=== PATIENT | male | born 1955 | race Two or more races ===

== ENCOUNTER 2019-03-18 14:33 | Inpatient (IN) | payer MEDICAID, OTHER ==
[~2019-03-18] VITALS: Ht 160 cm; Wt 70.5 kg
[2019-03-18] MEDS ORDERED: ACETAMINOPHEN 325 MG TAB PO ONE (15:00)
[2019-03-18 15:26] LABS: Basophils # (auto) 0.1 uL; Eosinophils # (auto) 0 uL; Mean Corpuscular Hemoglobin 18.3 pg (28.0-32.0); Mean Corpuscular Hgb Conc. 31.1 g/dL (32.0-36.0); Mean Corpuscular Volume 58.8 fL (80.0-100.0); Nucleated Red Blood Cells % 0.1 %; Red Cell Distribution Width 17.5 % (11.8-14.3)
[2019-03-18 15:28] LABS: Basophils % (auto) 0.6 % (0.0-2.0); Hemoglobin 11.5 g/dL (13.5-17.5); Lymphocytes # (auto) 0.6 uL; Lymphocytes % (auto) 4.8 % (10.0-50.0); Monocytes # (auto) 0.9 uL; Monocytes % (auto) 7.6 % (0.0-12.0); Neutrophils # (auto) 10.4 uL; Platelet Count (auto) 221 10^3/uL (140-450); Red Blood Cells 6.29 10^6/uL (4.5-5.90)
[2019-03-18] MEDS ORDERED: SODIUM CHLORIDE 0.9% 500 ML IV ONE (15:36)
[2019-03-18 15:38] LABS: Albumin 3.4 g/dL (3.4-5.0); BUN/Creatinine Ratio 13.8; Calcium 8.3 mg/dL (8.5-10.1); Potassium 4.3 mmol/L (3.5-5.1)
[2019-03-18 15:41] LABS: Bilirubin, Total 0.6 mg/dL (0.2-1.0); Total Protein 7.7 g/dL (6.4-8.2)
[2019-03-18 15:58] LABS: Urine Bacteria MANY /hpf (None Seen); Urine Blood 2+ /uL (Negative); Urine Mucus FEW (None Seen); Urine Specific Gravity 1.015 (1.001-1.035); Urine WBC 1894 /hpf (0 - 3); Urine WBC Clumps PRESENT /hpf (None Seen)
[2019-03-18] MEDS ORDERED: ONDANSETRON HCL 4 MG/2 ML VIAL IV ONE (17:15)
[2019-03-18] MEDS ORDERED: cefTRIAXone 1GM/50ML D5W 50 ML IV ONE (17:15)
[2019-03-18] MEDS ORDERED: MORPHINE SULF INJ 2 MG/ML SYRINGE 1ML IV ONE (17:15)
[2019-03-18] MEDS ORDERED: ACETAMINOPHEN 500 MG TAB PO PRN (18:00)
[2019-03-18] MEDS ORDERED: HYDROcodone-ACET 5/325MG TAB PO PRN (18:00)
[2019-03-18] MEDS ORDERED: NITROGLYCERIN 0.4 MG SL TAB SL PRN (18:00)
[2019-03-18] MEDS ORDERED: hydrALAZINE HCL 20 MG/ML VL IV PRN (18:00)
[2019-03-18] MEDS ORDERED: MORPHINE SULF INJ 2 MG/ML SYRINGE 1ML IV PRN ×2 (18:00)
[2019-03-18] MEDS ORDERED: ONDANSETRON HCL 4 MG/2 ML VIAL IV PRN (18:00)
[2019-03-18] MEDS: FAMOTIDINE 20 MG TAB PO SCH (18:08)
[2019-03-18] MEDS: TAMSULOSIN HYDROCHLORIDE 0.4 MG CAP PO SCH (18:08)
--- NOTE | 2019-03-18 18:28 | NUR ---
REPORT RECEIVED FROM JERMAINE PONCE RE PATIENT STATUS AND CONTINUATION OF CARE.
--- NOTE | 2019-03-18 18:35 | NUR ---
PATIENT RECEIVED FROM ER VIA WHEELCHAIR,TO BED MADE COMFORTABLE THEN PATIENT AMBULATED TO REST ROOM,NO DISTRESS NO C/O PAIN.
[2019-03-18 18:57] LABS: Creatinine, Urine 109 mg/dL (30.0-125.0); Sodium Urine 57 mmol/L (40-220)
--- NOTE | 2019-03-18 19:45 | NUR ---
Opening Shift Note Assumed care of patient, awake and alert. at bedside. No S/S of distress/SOB or pain. Bed locked in lowest position, side rails upx2, call light within reach. Instructed on POC and to call for assist PRN, will continue to monitor for changes Q1hr and PRN.
[2019-03-18 20:00] VITALS: BP 103/61
[2019-03-18] MEDS: DOCUSATE SOD 100 MG CAP PO SCH (21:23)
[2019-03-18 22:00] VITALS: BP 103/61
[2019-03-19 05:00] VITALS: BP 110/58
[2019-03-19 06:45] LABS: Basophils # (auto) 0.1 uL; Basophils % (auto) 0.8 % (0.0-2.0); Eosinophils # (auto) 0.1 uL; Eosinophils % (auto) 1.3 % (0.0-7.0); Hematocrit 34.5 % (41.0-53.0); Lymphocytes % (auto) 12.3 % (10.0-50.0); Mean Corpuscular Hemoglobin 18.9 pg (28.0-32.0); Mean Corpuscular Hgb Conc. 31.8 g/dL (32.0-36.0); Mean Corpuscular Volume 59.4 fL (80.0-100.0); Monocytes % (auto) 12.4 % (0.0-12.0); Neutrophils # (auto) 5.9 uL; Neutrophils % (auto) 73.2 % (37.0-80.0); Nucleated Red Blood Cells % 0.1 %; Platelet Count (auto) 186 10^3/uL (140-450); Red Blood Cells 5.81 10^6/uL (4.5-5.90); Red Cell Distribution Width 17.9 % (11.8-14.3); White Blood Cell 8.1 10^3/uL (4.4-10.8)
[2019-03-19 06:51] LABS: Calcium 8.3 mg/dL (8.5-10.1); Potassium 4.7 mmol/L (3.5-5.1)
[2019-03-19 06:54] LABS: BUN/Creatinine Ratio 14.1
--- NOTE | 2019-03-19 07:15 | NUR ---
Opening Shift Note Assumed care of patient, awake,alert and oriented, No S/S of distress/SOB or pain. Instructed on POC,NURSING ROUTINES AND PLAN OF CARE ,to call for assistance as needed ,will continue to monitor for changes Q1hr and PRN.
[2019-03-19 08:30] VITALS: BP 124/61
[2019-03-19] MEDS: DOCUSATE SOD 100 MG CAP PO SCH ×2 (09:17→21:28)
[2019-03-19] MEDS: cefTRIAXone 1GM/50ML D5W 50 ML IV SCH (09:18)
[2019-03-19 12:30] VITALS: BP 130/74
--- NOTE | 2019-03-19 14:00 | NUR ---
REMOVED ND DISCONTINUED TELEMETRY,RETURNED TO ICU M.T.
--- NOTE | 2019-03-19 14:15 | NUR ---
[facility] HERE TO SEE AND EXAMINED PATIENT
[2019-03-19] MEDS: SOD CHL 0.45% 1,000 ML IV SCH (14:19)
--- NOTE | 2019-03-19 14:30 | NUR ---
RAZO CATHETER INSERTION PATIENT REQUESTED TO INSERT OWN RAZO CATHETER,PATIENT PROVIDED WITH STERILE GLOVES,CLEANSE AREA WITH BETADINE X3 USING ASEPTIC TECHNIQUE,[place] #16 INSERTED WITH NO DIFFICULTY,RAZO CATHETER STABILIZATION DEVICE IN PLACE.
[2019-03-19 16:37] VITALS: BP 125/67
[2019-03-19] MEDS: TAMSULOSIN HYDROCHLORIDE 0.4 MG CAP PO SCH (18:09)
[2019-03-19] MEDS ORDERED: DILT60TA27 PO (18:17)
[2019-03-19] MEDS ORDERED: METO-158 PO (18:19)
[2019-03-19 21:55] VITALS: BP 128/70
[2019-03-20] MEDS: SOD CHL 0.45% 1,000 ML IV SCH ×2 (00:14→14:52)
[2019-03-20 05:08] VITALS: BP 116/67
[2019-03-20 07:02] LABS: Calcium 8.4 mg/dL (8.5-10.1); Potassium 4.3 mmol/L (3.5-5.1)
[2019-03-20 07:04] LABS: BUN/Creatinine Ratio 13.5
--- NOTE | 2019-03-20 07:30 | NUR ---
opening shift note PATIENT RESTING IN BED, RESPIRATIONS EVEN AND UNLABORED. NO S/S OF DISTRESS NOTED AT THIS TIME. PATIENT A&OX4. DENIES PAIN AT THIS TIME. RAZO CATHETER HANGING BELOW BLADDER WITH NO KINKS. DRAINING CLEAR YELLOW URINE. PATIENT UPDATED ON POC. ALL QUESTIONS ANSWERED,BED IN LOWEST LOCKED POSITION WITH CALL LIGHT WITHIN REACH. WILL CONTINUE CARE.
[2019-03-20 08:00] VITALS: BP 133/72
[2019-03-20] MEDS: cefTRIAXone 1GM/50ML D5W 50 ML IV SCH (09:29)
[2019-03-20] MEDS: DOCUSATE SOD 100 MG CAP PO SCH ×2 (09:29→22:00)
[2019-03-20 12:00] VITALS: BP_SYST 131; BP_SYST 147; BP_DIAS 68; BP_DIAS 75
[2019-03-20] MEDS: TAMSULOSIN HYDROCHLORIDE 0.4 MG CAP PO SCH (17:37)
[2019-03-20] MEDS: FAMOTIDINE 20 MG TAB PO SCH (17:38)
--- NOTE | 2019-03-20 19:00 | NUR ---
ENDORSED CARE TO RN BRIGIDA. PATIENT IN NO S/S OF DISTRESS.
--- NOTE | 2019-03-20 20:00 | NUR ---
Opening Shift Note Assumed care of patient, awake and alert. No S/S of distress/SOB or pain. Instructed on POC and to call for assist PRN, will continue to monitor for changes Q1hr and PRN.
--- NOTE | 2019-03-20 20:00 | NUR ---
Opening Shift Note Assumed care of patient, awake and alert. No S/S of distress/SOB. Patient states pain is 7/10. Patient requesting pain medicine. Will call hospitalist for orders. Instructed on POC and to call for assist PRN, will continue to monitor for changes Q1hr and PRN. Addendum: 03/21/19 at 0037 by ANSELMO MURILLO RN wrong patient please disregard
[2019-03-20 21:30] VITALS: BP 133/71
[2019-03-21] MEDS: SOD CHL 0.45% 1,000 ML IV SCH (03:15)
[2019-03-21 05:00] VITALS: BP 123/67
[2019-03-21 07:00] LABS: Potassium 4.8 mmol/L (3.5-5.1)
[2019-03-21 07:07] LABS: Calcium 8.6 mg/dL (8.5-10.1)
[2019-03-21 08:00] VITALS: BP 125/78
[2019-03-21] MEDS: cefTRIAXone 1GM/50ML D5W 50 ML IV SCH (10:09)
[2019-03-21] MEDS: DOCUSATE SOD 100 MG CAP PO SCH (10:09)
[2019-03-21] MEDS ORDERED: CEFU500T43 PO (10:39)
[2019-03-21] MEDS ORDERED: TAM04C PO (10:39)
[2019-03-21 12:04] VITALS: BP 125/78
[2019-03-21 13:00] VITALS: BP 149/66
--- NOTE | 2019-03-21 13:31 | NUR ---
DISCHARGE NOTE PATIENT ALERT AND ORIENTED X4. ALL DISCHARGE INSTRUCTIONS GIVE. RAZO BAG CHANGED TO LEG BAG. EDUCATED PATIENT ON USE. ALL QUESTIONS AND CONCERNS ADDRESSED. ALL PAPER WORK AND INSTRUCTIONS GIVEN. IV REMOVED USING ASEPTIC TECHNIQUE CATHETER INTACT PRESSURE DRESSING APPLIED PATIENT TOLERATED WELL. LAST OUTPUT VIA RAZO DRAINAGE BAG 1100ML. PATIENT CHOSE TO AMBULATE TO PERSONAL VEHICLE WITH FAMILY WITH A STEADY GAIT. PATIENT DENIES ANY PAIN, SOB OR DISTRESS, OR ANY URINARY BLADDER RETENTION.
[2019-03-21] MEDS ORDERED: TAMSULOSIN HYDROCHLORIDE 0.4 MG CAP PO SCH (18:00)
== END 2019-03-21 13:31 | disposition home or self-care (01) | DRG 720 ==
LOC: ER 14:41 → TELE-EAST 14:42 → EAST 03-19 12:10
PROVIDERS: ADMIT Nurse Practitioner Acute Care; ATTEND Internal Medicine
DX: A41.9 Sepsis, unspecified organism (principal); N17.9 Acute kidney failure, unspecified; N18.4 Chronic kidney disease, stage 4 (severe); N13.8 Other obstructive and reflux uropathy; N40.0 Benign prostatic hyperplasia without lower urinary tract symptoms; D50.9 Iron deficiency anemia, unspecified; I12.9 Hypertensive chronic kidney disease with stage 1 through stage 4 chronic kidney disease, or unspecified chronic kidney disease; B96.20 Unspecified Escherichia coli [E. coli] as the cause of diseases classified elsewhere; N10 Acute pyelonephritis; N40.1 Benign prostatic hyperplasia with lower urinary tract symptoms; Z83.3 Family history of diabetes mellitus; Z87.440 Personal history of urinary (tract) infections
CPT/HCPCS: 36415; 76775; 80048; 80053; 81001; 82570; 83605; 84300; 85025; 87040; 87086; 87088; 87186; 93005; 94761; 96361; 96365; 96375; G0378; J0696; J2405

== ENCOUNTER 2019-04-13 08:24 | Emergency (ER) | payer MEDICAID ==
[~2019-04-13] VITALS: Ht 162.6 cm; Wt 70.3 kg
[~2019-04-13 08:24] MED LIST: CEFU500T43 PO; DILT60TA27 PO; METO-158 PO; TAM04C PO
[2019-04-13 08:51] VITALS: BP 171/66
== END 2019-04-13 09:33 | disposition home or self-care (01) ==
LOC: ER 08:37
DX: T83.038A Leakage of other urinary catheter, initial encounter (principal); N39.0 Urinary tract infection, site not specified; I12.9 Hypertensive chronic kidney disease with stage 1 through stage 4 chronic kidney disease, or unspecified chronic kidney disease; N18.9 Chronic kidney disease, unspecified; Y83.9 Surgical procedure, unspecified as the cause of abnormal reaction of the patient, or of later complication, without mention of misadventure at the time of the procedure; Y92.89 Other specified places as the place of occurrence of the external cause
CPT/HCPCS: 81002